=== PATIENT | male | born 1990 | race African-American/Black ===

== ENCOUNTER 2020-03-11 10:50 | Emergency (ER) | payer SELFPAY ==
[~2020-03-11] VITALS: Ht 177.8 cm; Wt 72.7 kg
[2020-03-11 12:57] VITALS: BP 118/63
== END 2020-03-11 13:00 | disposition home or self-care (01) ==
LOC: EMS 10:51
DX: G93.40 Encephalopathy, unspecified (principal); F17.210 Nicotine dependence, cigarettes, uncomplicated; F12.90 Cannabis use, unspecified, uncomplicated
CPT/HCPCS: 99283; Z7502